=== PATIENT | female | born 1960 | race Two or more races ===

== ENCOUNTER 2017-09-01 12:35 | Day surgery (SDC) | payer OTHER ==
[~2017-09-01 12:35] MED LIST: PERCOCET 5-3251 EACH PO
== END 2017-09-01 14:15 | disposition home or self-care (01) ==
LOC: CIR.AMB 12:35 → SURG 14:45 → EDSTATUS 14:45 → RECOVERY 14:45
DX: K81.1 Chronic cholecystitis (principal)